=== PATIENT | male | born 1975 | race Caucasian/White ===

== ENCOUNTER 2018-11-02 20:45 | Emergency (ER) | payer BC ==
[~2018-11-02] VITALS: Ht 170.2 cm; Wt 83.0 kg
[2018-11-02 20:54] VITALS: BP 116/80; Ht 170.2 cm; Wt 83.0 kg
== END 2018-11-02 22:41 | disposition home or self-care (01) ==
LOC: ED 20:45
DX: L29.9 Pruritus, unspecified (principal); I10 Essential (primary) hypertension; F41.9 Anxiety disorder, unspecified; G47.00 Insomnia, unspecified
CPT/HCPCS: J7512